=== PATIENT | female | born 1995 | race Caucasian/White ===

== ENCOUNTER 2019-10-01 09:18 | Outpatient (CLI) | payer BC ==
--- NOTE | 2019-10-01 09:35 | RAD ---
XR Chest Pa Lat STANDARD History: Acute bronchitis Comparison: None. Findings: The lungs are clear. No pneumothorax. No effusion. No acute osseous abnormality. Cardiac si lhouette and mediastinal contours are within normal limits. Impression: No acute intrathoracic abnormality.
== END 2019-10-01 09:19 | disposition home or self-care (01) ==
LOC: BICRAD 09:18
PROVIDERS: ATTEND Family Medicine
DX: J20.9 Acute bronchitis, unspecified (principal)
CPT/HCPCS: 36415; 71046; 80053; 85025; 86308; 86710

== ENCOUNTER 2021-03-29 13:28 | Outpatient (CLI) | payer BC | END 2021-03-29 13:29 | disposition home or self-care (01) | LOC: DTY/OP 13:28 | PROVIDERS: ATTEND Obstetrics & Gynecology | DX: O24.410 Gestational diabetes mellitus in pregnancy, diet controlled (principal) | CPT/HCPCS: 97802 ==